=== PATIENT | female | born 1955 | race Caucasian/White ===

== ENCOUNTER → 2016-11-16 | Outpatient (CLI) | payer OTHER | END | disposition home or self-care (01) | LOC: RAD.S 10:30 | DX: R10.9 Unspecified abdominal pain (principal); N20.0 Calculus of kidney; K57.90 Diverticulosis of intestine, part unspecified, without perforation or abscess without bleeding; R91.8 Other nonspecific abnormal finding of lung field ==

== ENCOUNTER → 2016-11-18 | Outpatient (CLI) | payer OTHER ==
--- NOTE | 2016-11-18 11:55 | NUR ---
1 hr screening/ This client was going to be oriented for IOP however she continues to use meth and used meth today so recommendations have changed to go to detox and then residential. She said she had gotten a eval in the past and they recommended [facility] but she did not follow through. We called her sailing officer in [place] and told him she is still using and what recommendations were. She said she cant go to detox today but did not say she won't at some point.
--- NOTE | 2016-11-28 13:46 | NUR ---
counselor note/ Client contacted me and compliance program manager stating she wants IOP instead of residential. geographic area intelligence officer also contacted me stating what client is wanting. I restaffed this today and it was decided to stick with recommendations of residential and I talked to probation and told him this and he said ok.
== END | disposition home or self-care (01) ==
LOC: ADTC.GI 09-16 10:00 → EDSTATUS 09-16 10:00 → ADTC.GI 10:00
DX: F32.9 Major depressive disorder, single episode, unspecified (principal); F15.20 Other stimulant dependence, uncomplicated